=== PATIENT | female | born 1975 | race Caucasian/White ===

== ENCOUNTER 2024-09-24 14:32 | Outpatient (REF) | payer MEDICAID, SELFPAY ==
--- OUTSIDE RECORDS SUMMARY | 2024-09-24 18:00 | XMS_ITS | Encounter Summary ---
Author Organization [facility] Address [address] [place] [address] Care Team Providers Care Presentation Manager Name Role Phone Gume Arrieta MD Primary Care Provider [phone] Reason for Visit * Reason Comments New Patient Encounter Details Date Type Department Care Team (Late st Contact Info) Description 09/23/2024 2:00 PM EST Office Visit Urogynecology [address] [phone] Joanna Escobar MD [address] [place] [address] [address] [place] [address] Stress incontinence (Primary Dx); Normal urinalysis; Urge urinary incontinence Social History Tobacco Use Types Packs/Day Years Used Date Smoking Tobacco: Never Smokeless Tobacco: Never Tobacco Cessation:Counseling Given: Not Answered Alcohol Use Standard Drinks/Week Comments Yes 0 (1 standard drink = 0.6 oz pur e alcohol) Comments Unknown Sex and Gender Information Value Date Recorded Sex Assigned at Not on file Legal Sex Female 9:58 PM EST Gender Identity Not on file Sexual Orientation Not on file documented as of this encounter Last Filed Vital Signs Vital Sign Reading Time Taken Comments Blood Pressure 122/77 09/23/2024 2:02 PM EST Pulse 79 09/23/2024 2:02 PM EST Temperature - - Respiratory Rate 16 09/23/2024 2:02 PM EST Oxygen Saturation - - Inhaled Oxygen Concentration - - Weight 113 kg (249 lb) 09/23/2024 2:02 PM EST Height 165.1 cm (5' 5 ) 09/23/2024 2:02 PM EST Body Mass Index 41.44 09/23/2024 2:02 PM EST documented in this encounter Ordered Prescriptions Prescription Sig Dispense Quantity Refills Last Filled Start Date End Date mometasone (ELOCON) 0.1 % ointment Apply half a fingertip amount to the vulva twice weekly thereafter 45 g 1 09/23/2024 documented in this encounter Progress Notes * Joanna Escobar MD - 09/23/2024 2:00 PM EST UROGYNECOLOGY NEW PATIENT OFFICE VISIT VISIT LOCATION: [place] DATE: 09/23/2024 CHIEF COMPLAINT: Jazlyn Harper is a 49 y.o. female who presents for consultation requested by Anabel Jenkins CNM ind[place] opinion regarding urinary incontinence. HISTORY OF PRESENT ILLNESS: Ms. Harper presents today with a primary complaint of urinary leakage x few years. She has to wear a pad every day, changes them at least twice a day. She has noted worsening symptoms over the years.It has affected her quality of life. She affects her body image. She from her and is hesitant to become intimate with a new partner due to the UI. She leaks if she coughs, sneezes or laughs. If she travels, she restricts her fluid intake and preemptively voids before she leaves. She has to make sure her bladder empty, otherwise she will have to go frequently. She has to change her outer clothing if she leaks. Even if she empties her bladder and coughs, she will leak. She experiences strong sudden urgency when her bladder is too full and will leak with urgency. 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 Her youngest daughter has medical needs. She has no time to exercise or attend appointments due to her shifts. Fluid intake: Tries to drink water She loves coffee (one cup a day, at most two) Used to drink more when she was younger She denies soda, seltzer regularly She denies symptoms of voiding dysfunction. She reports sensation of vaginal bulge intermittently, has felt something after a bowel movement. She denies dysuria, gross hematuria, frequent UTIs. Sexual function Sexually active: Not currently active due to presenting symptoms. Reports history of coital incontinence. OBSTETRIC AND GYNECOLOGIC HISTORY: Deliveries: Vaginal: 1 : 2 Weight of largest baby: 6#12oz (), 8#6oz (C/S) Abnormal Pap smear: Yes Prior treatment included: LEEP remote in her 20s Last Pap: 06/01/2021 Prior Pelvic Radiation: no Menopause Perimenopause LMP 09/02/24 Oligomenorrhea has period about once a year Hormone Replacement Therapy: Denies Type: N/A No intermenstrual bleeding ADDITIONAL REVIEW OF SYSTEMS (ROS): Negative to review except as above in HPI. PAST/FAMILY/SOCIAL HISTORY (PFSH): Past Surgical History: No date: CERVICAL BIOPSY W/ LOOP ELECTRODE EXCISION Comment: PROCEDURE: CA CONIZATION CERVIX W/WO D&C RPR ELTRD EXC 01/22/2007: SECTION Comment: PROCEDURE: CA DELIVERY ONLY; COMMENT: x2 2022: CHOLECYSTECTOMY No date: MULTIPLE TOOTH EXTRACTIONS Comment: PROCEDURE: HISTORICAL DENTAL EXTRACTION No date: NASAL SEPTUM SURGERY Comment: Deviated septum No date: OTHER SURGICAL HISTORY Comment: PROCEDURE: HISTORY OTHER; COMMENT: nose/sinuses 01/22/2007: TUBAL LIGATION Comment: PROCEDURE: HISTORICAL TUBAL LIGATION Past Medical History: 10/09/2016: Cardiac murmur Comment: DX:Cardiac murmur 04/15/2017: Decreased hearing Comment: DX:Decreased hearing 12/24/2017: Depression with anxiety Comment: DX:Depression with anxiety 10/22/2017: Elevated platelet count Comment: DX:Elevated platelet count 02/05/2018: Hyperlipidemia Comment: DX:Hyperlipidemia 10/09/2016: Left lateral epicondylitis Comment: DX:Left lateral epicondylitis 09/07/2011: Psoriasis Comment: DX:Psoriasis 06/21/2015: Varicose veins Comment: DX:Varicose veins 12/24/2017: Vitamin D deficiency Comment: DX:Vitamin D deficiency Prior to Admission medications Medication Sig Start Date End Date Taking? Authorizing Provider albuterol 2.5 mg /3 mL (0.083 %) nebulizer solution Take 1 Vial by nebulization every 4 hours as needed for Wheezing for up to 180 days. 03/10/20 Historical Provider, albuterol HFA (PROAIR HFA ; PROVENTIL HFA ; VENTOLIN HFA) 90 mcg/actuation inhaler Inhale 2 Puffs into the lungs every 6 hours as needed for Cough or Wheezing. 03/10/20 Historical Provider, cholecalciferol (VITAMIN D-3) 50 mcg (2,000 unit) tablet 1 tablet (2,000 Units total). 01/07/15 Historical Provider, EPINEPHrine (EpiPen 2-Juan) 0.3 mg/0.3 mL injection Inject 1 Device as directed as needed (anaphylaxis). Use as directed 08/24/20 Historical Provider, escitalopram (LEXAPRO) 5 mg tablet TAKE 1 TABLET BY MOUTH EVERY DAY FOR 30 DAYS 01/11/22 Historical Provider, estradioL (ESTRACE) 0.01 % (0.1 mg/gram) vaginal cream 0.25g twice daily for 2 weeks then up to twice weekly as needed 03/27/24 04/21/25 Historical Provider, ferrous sulfate 325 mg (65 mg elemental iron) tablet Take 1 tablet (325 mg total) by mouth 1 (one) time each day. 07/16/19 Historical Provider, fexofenadine (DEBBIE) 180 mg tablet Take 1 tablet (180 mg total) by mouth 1 (one) time each day. 05/03/21 Historical Provider, fluticasone propion-salmeteroL (Advair HFA) 230-21 mcg/actuation inhaler Inhale 2 Puffs into the lungs 2 times daily for 360 days. 05/03/21 Historical Provider, ibuprofen (ADVIL,MOTRIN) 600 mg tablet Take 1 Tab by mouth every 8 hours as needed for Pain. 12/22/19Historical Provider, ipratropium-albuteroL (DUONEB) 0.5-2.5 mg/3 mL nebulizer solution Inhale 3 mL into the lungs once for 1 dose. 05/03/21 Historical Provider, MD Lutz,saliva/B.bif/S.therm (ACIDOPHILUS PROBIOTIC BLEND ORAL) Take 1 tablet by mouth 1 (one) time each day. 07/16/19 Historical Provider, miscellaneous medical supply [facility] [place] SPACER DEVICE-ADULT- Use with device with albuterol inhaler 09/03/19 Historical Provider, mometasone (ELOCON) 0.1 % ointment Apply half a fingertip amount to the vulva nightly x4 weeks thentwice weekly thereafter 03/27/24 Historical Provider, multivit with calcium,iron,min (MULTIPLE VITAMIN, WOMENS ORAL) Take 1 tablet by mouth 1 (one) time each day. 11/26/12 Historical ProviderMD sodium chloride (AYR) 0.65 % nasal drops 1-2 Sprays by Nasal route as needed for Congestion. 08/24/20Historical Provider, triamcinolone (NASACORT) 55 mcg nasal inhaler 55 mcg by Nasal route daily. 05/03/21 Historical Provider, Family History Problem Relation Name Age of Onset Colon polyps Father Prostate cancer Father Alzheimer's disease Aunt paternal Other (Other: CA Ovarian?) Aunt paternal 40.00 Coronary artery disease Mother Hypertension Mother Other (Other: arrhythmia) Mother Coronary artery disease Maternal Grandmother Other (Other: lung cancer) Maternal Grandmother Asthma Daughter Asthma Daughter Breast cancer Neg Hx Colon cancer Neg Hx Social History Socioeconomic History Marital status: Spouse name: None Number of children: None Years of education: None Highest education level: None Occupational History None Tobacco Use Smoking status: Never Smokeless tobacco: Never Substance and Sexual Activity Alcohol use: Yes Drug use: No Sexual activity: None Comment: Tubal ligation Other Topics Concern None Social History Narrative Lives with , 2 daughters, 1 son grown and out on his own 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 Joanna Escobar MD OBJECTIVE: Vitals: 09/23/24 1402 BP: 122/77 Pulse: 79 Resp: [address] Magistrate present: Marylou Wesley MA Constitutional: BMI - Body mass index is 41.44 kg/m??. General - Awake, alert, no acute distress. Head - Normocephalic, Atraumatic. Pulmonary - Normal respiratory effort, Speaking in full sentences comfortably. Abdominal - Protuberant, Soft, Nondistended, Nontender. No rebound or guarding., and Surgical scar(s) noted (Laparoscopic, C/S) Pelvic (a speculum was used for portions of the below exam): External Genitalia: Normal external genitalia, No erythema, No discharge. Urethral Meatus: Normal urethral meatus Urethra: Supine cough stress test negative. Vagina: Atrophic epithelium Cervix: Present and No abnormalities visualized POP-Q: Prolapse Noted: No Aa: -3 Ba: -3 C: -5 GH: 4 PB: 3 TVL: 9 Ap: -3 Bp: -3 D: -8 Levator Ani Contraction: Strong (5/5) Unmistakably strong contraction with psoterior elevation of fingers, held for at least 10 secconds, repeated 4-5 times Levator Ani Tone: Normal and Able to relax Levator Ani Tenderness: {none Bimanual: {Small, mobile, anteverted uterus, No adnexal masses Rectovaginal: Deferred Anal Sphincter: Deferred Voided volume = 50 ml. POST-VOID RESIDUAL performed (See procedure note below). Procedure Note: A catheterization was performed to check PVR and UA. I cleansed the urethral meatus with Betadine. Under sterile techniques a straight cath was inserted. Specimen was collected without difficulty. Patient tolerated procedure well. Joanna Escobar MD Post-Void Residual: 15 ml. I have reviewed the post-void residual volume, and have independently interpreted it as: negative for urinary retention URINE DIPSTICK performed due to urinary urgency. Leuks: neg Nitrites: neg Heme: neg I have reviewed the urine dipstick results, and have independently interpreted it as: negative for urinary tract infection and negative for hematuria Assessment & Diagnosis: Stress Urinary Incontinence (Chronic illness with exacerbation, progression, or side effects of treatment) -Discussed etiology of DANG. Management of this condition includes lifestyle and dietary modifications (timed voids, weight loss, avoidance of constipation and heavy lifting), pelvic floor muscle exercises/pelvic floor physical therapy, pessary, urethral bulking, mid-urethral mesh sling, non-mesh surgical options. -Previous therapies: lifestyle modifications -Current therapies: same as above -Given relative severity of her condition and desire for definitive management, she is a candidate for midurethral sling procedure. I explained the procedure, efficacy, duration of outcomes. -We discussed the need to schedule complex urodynamic testing if the patient decides to pursue surgical management of her urinary symptoms, to evaluate the mechanisms of her urinary incontinence and to assess her pre-operative voiding function. -After our discussion, Ms. Harper would like to proceed with urodynamic testing. We will meet following her testing to discuss management plan. Overactive Bladder Syndrome (Urinary Frequency, Urinary Urgency, Urge Urinary Incontinence, and/or Nocturia) (Chronic illness with exacerbation, progression, or side effects of treatment) -Discussed etiology and risk factors for UUI/OAB. -The care path for UUI/OAB includes lifestyle changes (I.e. fluid restriction, avoidance of bladderirritants, bladder training), PFPT, medications, and procedures (I.e. bladder Botox, sacral neuromodulation). -Previous therapies: lifestyle modifications -Current therapies: lifestyle modifications -Reviewed list of bladder irritants. -Discussed trial of OAB medication. There is no pharmacologic cure to OAB. Medications are prescribed to alleviate symptoms and improve quality of life. -If conservative treatment or medications are insufficient, we may proceed with advanced therapy options such as sacral nerve stimulation and intradetrusor Botox injections. We discussed that I do not see any evidence of pelvic organ prolapse on her exam. Her urinalysis today was negative for evidence of urinary tract infection or hematuria. Treatment plan: Schedule urodynamics Schedule follow up visit to discuss results and management plan Risk of morbidity, mortality and/or complications of treatment plan: Low I spent a total of 45 minutes on the date of the service, in seeing the patient and performing the following activities: Preparing to see the patient (e.g. reviewing tests) Obtaining and/or reviewingseparately obtained history Performing a medically appropriate examination and/or evaluation Counseling and educating the patient, family or caregiver Ordering medications, tests, or procedures Documenting clinical information in the electronic health record Independently interpreting results (not separately reported) and communicating results to the patient, family or caregiver My final recommendations will be communicated back to the requesting physician by way of shared Medical record or letter via US mail. Joanna Escobar MD Division of Urogynecology 09/23/2024 * Marylou Wesley MA - 09/23/2024 2:00 PM EST Lab Results Component Value Date POCGLUCURN Negative 09/23/2024 BILIRUBIN Negative 09/23/2024 KETONE Negative 09/23/2024 SPECGRAV 1.015 09/23/2024 BLOOD Negative 09/23/2024 PH 6.0 09/23/2024 PROTEIN Negative 09/23/2024 UROBILINOGEN 0.2 E.U./dL 09/23/2024 NITRITE Negative 09/23/2024 LEUKOCYTES Negative 09/23/2024 Cosigned by Joanna Escobar MD at 09/23/2024 2:46 PM EST documented in this encounter Plan of Treatment Upcoming Encounters Date Type Department Care Team (Late st Contact Info) Description 10/02/2024 1:30 PM EDT Office Visit Obstetrics and Gynecology - [facility] [address] [place] [address] Micaela Vega CN [address] [place] [address] 10/07/2024 2:00 PM EDT Clinical Support Urogynecology - [address] [phone] 10/14/2024 3:00 PM EDT Office Visit Urogynecology [address] [phone] Joanna Escobar MD [address] [place] [address] [address] [place] [address] documented as of this encounter Procedures Procedure Name Priority Date/Time Associated Diagnosis Comments POC URINE AUTO W/O MICRO Routine 09/23/2024 2:38 PM EST Normal urinalysis documented in this encounter Results * POC Urine Auto W/O Micro (09/23/2024 2:38 PM EST) Glucose UA POC Negative Negative, Trace mg/dL Bilirubin UA POC Negative Negative, Small Ketones UA POC Negative Negative, Trace Specific [place] UA POC 1.015 Blood UA POC Negative Negative, Large PH UA POC 6.0 Protein UA POC Negative Negative, >=300 mg/dL Urobilinogen UA POC 0.2 E.U./dL mg/dL Nitrite UA POC Negative Negative Leukocytes UA POC Negative Negative Urine Urine specimen obtained by clean catch procedure / Unknown 09/23/2024 2:38 PM EST us Joanna Escobar MD POINT OF CARE TEST ENTER/EDIT O RDERABLES Final Result documented in this encounter Visit Diagnoses Diagnosis Stress incontinence- Primary Female stress incontinence Normal urinalysis Urge urinary incontinence Urge incontinence documented in this encounter Discontinued Medications Medication Sig Discontinue Reason Start Date End Da te mometasone (ELOCON) 0.1 % ointment Apply half a fingertip amount to the vulva nightly x4 weeks then twice weekly thereafter Reorder 03/27/2024 09/23/2024 documented as of this encounter Care Teams Presentation Manager Relationship Specialty Start Date End Date Gume Arrieta MD [address] [facility] [place] PCP - General 04/06/24 documented as of this encounter
--- OUTSIDE RECORDS SUMMARY | 2024-09-24 18:00 | XMS_ITS ---
Author Organization [facility] Address [address] [place] [address] Care Team Providers Care Delivery Consultant Name Role Phone oral Lyles Primary Care Provider ISAURA Masterson [phone] REASON FOR VISIT none urgent Encounters Encounter Location Date Provider Diagnosis [facility] [address] [place] [address] 11/01/2023 ISAURA LYLES PLAN OF TREATMENT No Information Progress Notes * JOSEMANUEL WALSHDOB:1975 ( 48 yo F)Acc No.[id number]:11/01/2023 Patient:??JOSEMANUEL WALSH :1975?Age:48 Y?Sex:Fe male Address:[address] [place] [address] [place] [address] * true * Date:??
--- OUTSIDE RECORDS SUMMARY | 2024-09-24 18:00 | XMS_ITS ---
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 0.5. * Medical History:?? Objective: Assessment: Plan: * Treatment: * Images: Billing Information: * Visit Code:?? * Procedure Codes:?? * Sign off status: Pending * Provider:??Dimas Lyles MD Date:??10/31
--- OUTSIDE RECORDS SUMMARY | 2024-09-24 18:00 | XMS_ITS | Clinical Summary ---
Author Organization [address] Address [address] [place] [phone] Phone Care Team Providers Care Business Division Chair Name Role Phone Gume Arrieta MD Primary Care Provider [phone] Allergies Active Allergy Reactions Criticality Noted Date Comments Amoxicillin-Pot Clavulanate Other 03/10/2020 Diagnosed by allergy testing Iodine 05/31/2006 Swelling, fever Shellfish Derived Anaphylaxis,Itching, Rash High 12/18/2016 SEAFOOD: Allergic to fish and shellfish with the exception of white fish and scallop Medications albuterol 2.5 mg /3 mL (0.083 %) nebulizer solution Take 1 Vial by nebulization every 4 hours as needed for Wheezing for up to 180 days. 0 Active albuterol HFA (PROAIR HFA ; PROVENTIL HFA ; VENTOLIN HFA) 90 mcg/actuation inhaler Inhale 2 Puffs into the lungs every 6 hours as needed for Cough or Wheezing. 0 Active cholecalcifero l (VITAMIN D-3) 50 mcg (2,000 unit) tablet 1 tablet (2,000 Units total). 5 Active EPINEPHrine (EpiPen 2-Juan) 0.3 mg/0.3 mL injection Inject 1 Device as directed as needed (anaphylaxis). Use as directed 1 Active escitalopram (LEXAPRO) 5 mg tablet TAKE 1 TABLET BY MOUTH EVERY DAY FOR 30 DAYS 2 Active estradioL (ESTRACE) 0.01 % (0.1 mg/gram) vaginal cream 0.25g twice daily for 2 weeks then up to twice weekly as needed 4 025 Active ferrous sulfate 325 mg (65 mg elemental iron) tablet Take 1 tablet (325 mg total) by mouth 1 (one) time each day. 9 Active fexofenadine (DEBBIE) 180 mg tablet Take 1 tablet (180 mg total) by mouth 1 (one) time each day. 1 Active fluticasone propion-salmet Blaise (Advair HFA) 230-21 mcg/actuation inhaler Inhale 2 Puffs into the lungs 2 times daily for 360 days. 1 Active ibuprofen (ADVIL,MOTRIN) 600 mg tablet Take 1 Tab by mouth every 8 hours as needed for Pain. 0 Active ipratropium-al buteroL (DUONEB) 0.5-2.5 mg/3 mL nebulizer solution Inhale 3 mL into the lungs once for 1 dose. 1 Active multivit with calcium,iron,m in (MULTIPLE VITAMIN, WOMENS ORAL) Take 1 tablet by mouth 1 (one) time each day. 3 Active L.acidoph,sali va/B.bif/S.the rm (ACIDOPHILUS PROBIOTIC BLEND ORAL) Take 1 tablet by mouth 1 (one) time each day. 9 Active sodium chloride (AYR) 0.65 % nasal drops 1-2 Sprays by Nasal route as needed for Congestion. 1 Active triamcinolone (NASACORT) 55 mcg nasal inhaler 55 mcg by Nasal route daily. 1 Active miscellaneous medical supply [facility] SPACER DEVICE-ADULT- Use with device with albuterol inhaler 0 Active mometasone (ELOCON) 0.1 % ointment Apply half a fingertip amount to the vulva twice weekly thereafter 45 g 1 5 Active mometasone (ELOCON) 0.1 % ointment Apply half a fingertip amount to the vulva nightly x4 weeks then twice weekly thereafter 4 025 Discontin ued(Reord er) Active Problems Problem Noted Date Diagnosed Date Class 3 severe obesity due t o excess calories without serious comorbidity with body mass index (BMI) of 40.0 to 44.9 in adult 06/26/2024 Stress incontinence 06/01/2021 Lichen sclerosus 04/20/2020 Asthma 11/20/2019 Overview (06/26/2024): In childhood Recurrent wheezing in her 40s Morbid obesity 11/20/2019 Seasonal allergies 11/20/2019 Abnormal magnetic resonance imaging study 2017 Weakness of left leg 06/06/2018 Overview (06/26/2024): 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 Hyperlipidemia 02/05/2018 Depression with anxiety 12/24/2017 Vitamin D deficiency 12/24/2017 Elevated platelet count 10/22/2017 Decreased hearing 04/15/2017 Cardiac murmur 10/09/2016 Overview (06/26/2024): Nl echo with PVC 10/2019 Left lateral epicondylitis 10/09/2016 Known medical problems 06/21/2015 Overview (06/26/2024): Varicose veins Psoriasis 09/07/2011 Encounters Date Type Department Care Team Description 09/23/2024 2:00 PM EST Office Visit Urogynecology [address] [phone] Joanna Escobar MD Stress incontinence (Primary Dx); Normal urinalysis; Urge urinary incontinence from Last 3 Months Immunizations Name Administration Dates Next Due Influenza Quadravalent, MDCK , 0.5ml, preservative free (Flucelvax) 6mo and older 04/01/2020,07/16/2019 Moderna SARS-CoV-2 COVID-19, mRNA, LNP-S, preservative free 01/16/2021,12/19/2020 Tdap Tetanus diptheria acell ular pertussis (Boostrix; Adacel) 7yo and older 10/09/2016 Surgical History Surgery Date Site/Laterality Comments SECTION 01/22/2007 PROCEDURE: IA DELIVERY ONLY; COMMENT: x2 TUBAL LIGATION 01/22/2007 PROCEDURE: HISTORICAL TUBAL LIGATION CERVICAL BIOPSY W/ LOOP ELECTRODE EXCISION PROCEDURE: IA CONIZATION CERVIX W/WO D&C RPR ELTRD EXC MULTIPLE TOOTH EXTRACTIONS PROCEDURE: HISTORICAL DENTAL EXTRACTION OTHER SURGICAL HISTORY PROCEDURE: HISTORY OTHER; COMMENT: nose/sinuses CHOLECYSTECTOMY 07/22/2022 - 07/21/2023 NASAL SEPTUM SURGERY Deviated septum Medical History Medical History Date Comments Cardiac murmur 10/09/2016 DX:Cardiac murmu r Depression with anxiety 12/24/2017 DX:Depre ssion with anxiety Hyperlipidemia 02/05/2018 DX:Hyperlipidemi a Left lateral epicondylitis 10/09/2016 DX:Le ft lateral epicondylitis Vitamin D deficiency 12/24/2017 DX:Vitamin D deficiency Psoriasis 09/07/2011 DX:Psoriasis Varicose veins 06/21/2015 DX:Varicose vein s Decreased hearing 04/15/2017 DX:Decreased h earing Elevated platelet count 10/22/2017 DX:[place] platelet count Family History Medical History Relation Name Comments Alzheimer's disease Aunt paternal Other: CA Ovarian? Aunt paternal Asthma Daughter 1 Asthma Daughter 2 Colon polyps Father Prostate cancer Father Coronary artery disease Maternal Grandmother Other: lung cancer Maternal Grandmother Coronary artery disease Mother Hypertension Mother Other: arrhythmia Mother Breast cancer Neg Hx Colon cancer Neg Hx Relation Name Status Comments Aunt paternal Alive Daughter 1 Alive Daughter 2 Alive Father Alive Maternal Grandmother Mother Social History Tobacco Use Types Packs/Day Years [...] on file Sexual Orientation Not on file Obstetrics History Last Filed Vital Signs Vital Sign Reading [...] Mass Index 41.44 09/23/2024 2:02 PM EST Plan of Treatment Upcoming Encounters Date Type Department Care Team (Late st Contact Info) Description 10/02/2024 1:30 PM EDT [facility] [address] [place] [phone] Silvia Micaela, PAVEL [address] [place] [address] 10/07/2024 2:00 PM EDT Clinical Support Urogynecology - [address] [phone] 10/14/2024 3:00 PM EDT Office Visit Urogynecology - [address] [phone] Joanna Escobar MD [address] [place] [address] [address] [place] [address] Health Maintenance Due Date Last Done Comments Hepatitis A Vaccines (1 of 2 - Risk 2-dose series) 1992 Hepatitis B Vaccines (1 of 3 - 19+ 3-dose series) 1992 Pneumococcal Vaccine: 50+ Years (1 of 2 - PCV) 1992 Pneumococcal Vaccine: Pediatrics (0 to 5 Years) and At-Risk Patients (6 to 64 Years) (1 of 2 - PCV) 1992 Colorectal Cancer Screening: Colonoscopy 08/21/2019 Depression Screening 08/21/2019 Social Influencers of Health Screening 08/21/2019 Zoster Vaccines (1 of 2) 2023 COVID-19 Vaccine ( - season) 2024 08/25/2021, 01/16/2021, 12/19/2020 Influenza Vaccine (#1) 2024 04/01/2020, 2018 Breast Cancer Screening 11/17/2025 11/18/19 24, 10/16/2022, 10/11/2021, Additional history exists Cervical Cancer Screening: HPV 06/01/2026 06/01/2021 DTaP,Tdap,and Td Vaccines (2 - Td or Tdap) 10/09/2026 10/09/2016 Cholesterol Screening (Lipid Panel) 08/12/2029 08/12/2024, 07/16/2019 HIV Screening Completed 06/04/2022 Hepatitis C Screening Completed 06/04/2022 HIB Vaccines Aged Out No longer eligi ble based on patient's age to complete this topic HPV Vaccines Aged Out No longer eligi ble based on patient's age to complete this topic IPV Vaccines Aged Out No longer eligi ble based on patient's age to complete this topic MMR Vaccines Aged Out No longer eligi ble based on patient's age to complete this topic Meningococcal ACWY Vaccine Aged Out N o longer eligible based on patient's age to complete this topic Meningococcal B Vacine Aged Out No lo nger eligible based on patient's age to complete this topic RSV Immunization Patients Under 20 months Aged Out No longer eligible based on patient's age to complete this topic Varicella Vaccines Aged Out No longer eligible based on patient's age to complete this topic Procedures Procedure Name Priority Date/Time Associated Diagnosis Comments POC URINE AUTO W/O MICRO Routine 09/23/2024 2:38 PM EST Normal urinalysis CBC WITH AUTO DIFFERENTIAL Routine 08/12/2024 1:19 PM EST Dyslipidemia Routine general medical examination at a health care facility Fatigue THYROID STIMULATING HORMONE Routine 08/12/2024 1:19 PM EST Dyslipidemia Routine general medical examination at a health care facility Fatigue THYROXINE FREE Routine 08/12/2024 1:19 PM EST Dyslipidemia Routine general medical examination at a health care facility Fatigue CBC AND DIFFERENTIAL Routine 08/12/2024 1:19 PM EST Dyslipidemia Routine general medical examination at a health care facility Fatigue LIPID PANEL WITH REFLEX TO DIRECT LDL Routine 08/12/2024 1:19 PM EST Dyslipidemia Routine general medical examination at a health care facility Fatigue COMPREHENSIVE METABOLIC PANEL Routine 08/12/2024 1:19 PM EST Dyslipidemia Routine general medical examination at a health care facility Fatigue PAULINO SCREENING DIGITAL Routine 11/18/2023 10:01 AM EDT Encounter for screening mammogram for malignant neoplasm of breast HEPATITIS C SCREENING Routine 06/04/2022 HIV SCREENING Routine 06/04/2022 HPV Routine 06/01/2021 from Last 3 Months or Most Recently Relevant to Health Maintenance Results * POC Urine Auto W/O Micro (09/23/2024 2:38 PM EST) Glucose UA POC Negative Negative, Trace mg/dL Bilirubin UA POC Negative Negative, Small Ketones UA POC Negative Negative, Trace Specific [place] UA POC 1.015 Blood UA POC Negative Negative, Large PH UA POC 6.0 Protein UA POC Negative Negative, >=300 mg/dL Urobilinogen UA POC 0.2 E.U./dL mg/dL Nitrite UA POC Negative Negative Leukocytes UA POC Negative Negative Urine Urine specimen obtained by clean catch procedure / Unknown 09/23/2024 2:38 PM EST Joanna Escobar MD POINT OF CARE TEST ENTER/EDIT O RDERABLES Final Result * Lipid panel with reflex to direct LDL (08/12/2024 1:19 PM EST) Pathologist [facility] Cholesterol 160 0 - 200 mg/dL LAB CHEMISTRY METHOD 08/12/2024 5:32 PM [facility] Triglycerides 80 0 - 150 mg/dL LAB CHEMISTRY METHOD 08/12/2024 5:32 PM [facility] HDL 49 >=40 mg/dL LAB CHEMISTRY METHOD 08/12/2024 5:32 PM [facility] LDL Calculated 95 0 - 100 mg/dL LAB CHEMISTRY METHOD 08/12/2024 5:32 PM [facility] VLDL Cholesterol Joselito 16 mg/dL LAB CHEMISTRY METHOD 08/12/2024 5:32 PM [facility] Non HDL Chol. (LDL+VLDL) 111 <145 mg/dL LAB CHEMISTRY METHOD 08/12/2024 5:32 PM [facility] Chol/HDL Ratio 3.3 0.0 - 4.4 LAB CHEMISTRY METHOD 08/12/2024 5:32 PM [facility] Blood Venous blood specimen / Unknown Venipuncture / Unknown 08/12/2024 1:19 PM EST 08/12/2024 3:19 PM EST us Gume Arrieta MD LAB BLOOD ORDERABLES Final Resul t [facility] [address] [place] [address], [place] [phone] * (ABNORMAL) CBC auto differential (08/12/2024 1:19 PM EST) WBC 9.0 4.8 - 10.8 K/mcL LAB HEMETOLOGY METHOD 08/12/2024 3:37 PM [facility] RBC 4.60 3.80 - 4.80 M/mcL LAB HEMETOLOGY METHOD 08/12/2024 3:37 PM [facility] Hemoglobin 14.0 11.5 - 16.0 g/dL LAB HEMETOLOGY METHOD 08/12/2024 3:37 PM [facility] Hematocrit 42.0 35.0 - 47.0 % LAB HEMETOLOGY METHOD 08/12/2024 3:37 PM [facility] MCV 91.5 79.0 - 98.0 FL LAB HEMETOLOGY METHOD 08/12/2024 3:37 PM [facility] MCH 30.5 27.0 - 32.0 pcg LAB HEMETOLOGY METHOD 08/12/2024 3:37 PM [facility] MCHC 33.3 32.0 - 37.0 g/dL LAB HEMETOLOGY METHOD 08/12/2024 3:37 PM [facility] RDW 11.6 11.0 - 15.0 % LAB HEMETOLOGY METHOD 08/12/2024 3:37 PM [facility] Platelets 347 130 - 400 K/mcL LAB HEMETOLOGY METHOD 08/12/2024 3:37 PM [facility] MPV 10.4 7.0 - 11.0 FL LAB HEMETOLOGY METHOD 08/12/2024 3:37 PM [facility] NRBC 0.0 <1.0 % LAB HEMETOLOGY METHOD 08/12/2024 3:37 PM [facility] NRBC Absolute 0.00 <0.10 K/mcL LAB HEMETOLOGY METHOD 08/12/2024 3:37 PM [facility] Neutrophils Relative 58.7 % LAB HEMETOLOGY METHOD 08/12/2024 3:37 PM [facility] Lymphocytes Relative 27.4 % LAB HEMETOLOGY METHOD 08/12/2024 3:37 PM [facility] Monocytes Relative 10.9 % LAB HEMETOLOGY METHOD 08/12/2024 3:37 PM [facility] Eosinophils Relative 2.3 % LAB HEMETOLOGY METHOD 08/12/2024 3:37 PM [facility] Basophils Relative 0.3 % LAB HEMETOLOGY METHOD 08/12/2024 3:37 PM [facility] Immature Granulocytes Relative 0.4 % LAB HEMETOLOGY METHOD 08/12/2024 3:37 PM [facility] Neutrophils Absolute 5.30 1.50 - 7.00 K/mcL LAB HEMETOLOGY METHOD 08/12/2024 3:37 PM [facility] Lymphocytes Absolute 2.47 1.00 - 5.00 K/mcL LAB HEMETOLOGY METHOD 08/12/2024 3:37 PM [facility] Monocytes Absolute 0.98 0.20 - 1.00 K/mcL LAB HEMETOLOGY METHOD 08/12/2024 3:37 PM EST [facility] Eosinophils Absolute 0.21 0.00 - 0.50 K/[facility] LAB HEMETOLOGY METHOD 08/12/2024 3:37 PM EST [facility] Basophils Absolute 0.03 0.00 - 0.20 K/[facility] HEMETOLOGY METHOD 08/12/2024 3:37 PM EST [facility] Immature Granulocytes Absolute 0.04(H) 0.00 - 0.03 K/[facility] HEMETOLOGY METHOD 08/12/2024 3:37 PM EST [facility] Blood Venous blood specimen / Unknown Venipuncture / Unknown 08/12/2024 1:19 PM EST 08/12/2024 3:19 PM EST us Gume Arrieta MD LAB BLOOD ORDERABLES Final Resul t Performing Organization Address City/[facility]/ZIP Co de Phone Number [facility] [address] [place] [address], [place] [phone] * Thyroid stimulating hormone (08/12/2024 1:19 PM EST) TSH 1.22 0.40 - 4.00 mcIU/mL LAB CHEMISTRY METHOD 08/12/2024 5:40 PM EST [facility] Blood Venous blood specimen / Unknown Venipuncture / Unknown 08/12/2024 1:19 PM EST 08/12/2024 3:19 PM EST us Gume Arrieta MD LAB BLOOD ORDERABLES Final Resul t [facility] [address] [place] [address], [place] [phone] * Thyroxine free (08/12/2024 1:19 PM EST) Free T4 0.96 0.70 - 1.80 ng/dL LAB CHEMISTRY METHOD 08/12/2024 5:39 PM [facility] Blood Venous blood specimen / Unknown Venipuncture / Unknown 08/12/2024 1:19 PM EST 08/12/2024 3:19 PM EST us Gume Arrieta MD LAB BLOOD ORDERABLES Final Resul t [facility] [address] [place] [address], [place] [phone] * (ABNORMAL) Comprehensive metabolic panel (08/12/2024 1:19 PM EST) Sodium 138 133 - 145 mmol/L LAB CHEMISTRY METHOD 08/12/2024 5:32 PM [facility] Potassium 4.2 3.5 - 5.5 mmol/L LAB CHEMISTRY METHOD 08/12/2024 5:32 PM [facility] Chloride 105 96 - 110 mmol/L LAB CHEMISTRY METHOD 08/12/2024 5:32 PM [facility] CO2 29 21 - 32 mmol/L LAB CHEMISTRY METHOD 08/12/2024 5:32 PM [facility] Anion Gap 4 3 - 11 LAB CHEMISTRY METHOD 08/12/2024 5:32 PM [facility] Glucose 79 70 - 100 mg/dL LAB CHEMISTRY METHOD 08/12/2024 5:32 PM [facility] BUN 11 5 - 25 mg/dL LAB CHEMISTRY METHOD 08/12/2024 5:32 PM [facility] Creatinine 0.68 0.50 - 1.10 mg/dL LAB CHEMISTRY METHOD 08/12/2024 5:32 PM [facility] eGFR 106 >=60 mL/min/1. 73m2 LAB CHEMISTRY METHOD 08/12/2024 5:32 PM [facility] Comment:Calculation based on the??Chronic Kidney Disease Epidemiology Collaboration (CKD-EPI) equation refit??without adjustment for race. BUN/Creatinine Ratio 16.2 LAB CHEMISTRY METHOD 08/12/2024 5:32 PM [facility] Calcium 8.9 8.5 - 10.5 mg/dL LAB CHEMISTRY METHOD 08/12/2024 5:32 PM [facility] AST (SGOT) 48(H) 10 - 42 unit/L LAB CHEMISTRY METHOD 08/12/2024 5:32 PM [facility] ALT (SGPT) 76(H) 10 - 60 unit/L LAB CHEMISTRY METHOD 08/12/2024 5:32 PM [facility] Alkaline Phosphatase 71 42 - 121 unit/L LAB CHEMISTRY METHOD 08/12/2024 5:32 PM [facility] Total Protein 6.9 6.0 - 8.0 g/dL LAB CHEMISTRY METHOD 08/12/2024 5:32 PM [facility] Albumin 3.8 3.2 - 5.0 g/dL LAB CHEMISTRY METHOD 08/12/2024 5:32 PM [facility] Total Bilirubin 0.6 0.0 - 1.4 mg/dL LAB CHEMISTRY METHOD 08/12/2024 5:32 PM [facility] Blood Venous blood specimen / Unknown Venipuncture / Unknown 08/12/2024 1:19 PM EST 08/12/2024 3:19 PM EST us Gume Arrieta MD LAB BLOOD ORDERABLES Final Resul t [facility] [address] [place] [address], * PAULINO SCREENING DIGITAL (11/18/2023 10:01 AM EDT) Anatomical Region Laterality Modality Mammography 11/15/2023 9:18 AM EDT Narrative 11/18/2023 10:01 AM EDT [facility] Diagnostic Imaging Department [address] [place] [address] Patient: ??JOSEMANUEL WALSH ?/Age/Sex: 1975 - 48 - F Unit#: ??[id number] ? Location/Status: ??SPDIMAM/REG CLI ? Mnemonic/Ordering Site: ??DIGSC/SPMAIN Ordering Physician: ??DIMAS LYLES MD [facility] Screening Digital - 11/16/23 - 916 Report Status:Signed EXAM: [facility] Screening Digital EXAM DATE AND TIME: 11/16/2023 9:18 AM HISTORY: ??Screening. COMPARISON: ??10/15/22, 10/11/21, 04/07/20 TECHNIQUE: Bilateral digital breast tomosynthesis was performed in the CC and MLO projections. Computer aided detection with Enablon 3D 3.1 was employed. TISSUE DENSITY: a. The breasts are almost entirely fatty. FINDINGS: No suspicious masses, grouped microcalcifications, or areas of architectural distortion are seen. Skin calcifications are again seen. The vascularity is unremarkable. IMPRESSION: Stable mammographic appearance of the breasts. ??No evidence of malignancy is seen. A negative mammogram in the presence of a clinically suspicious palpable abnormality does not preclude the possibility of malignancy or alter the indications for biopsy. BI-RADS: ??Category 2: Benign RECOMMENDATION(S): 1: Routine screening mammogram BILATERAL in 1 year. Dictating Physician: ??KAYLAH LUCIO MD Electronically Signed by: ??KAYLAH LUCIO MD Dic Date/Time: ??11/18/23 1000 Sign date/Time: ??11/18/23 1001 Procedure Note Kaylah Lucio MD - 03/09/2024 [facility] Diagnostic Imaging Department [address] [place] [address] Patient: NICOJOSEMANUEL.O.B./Age/Sex: 1975 - 48 - F Unit#: [id number] [facility] CLI Mnemonic/Ordering Site: [facility] Ordering Physician: DIMAS LYLES MD [facility] Screening Digital - 11/16/23 - 0917 Report Status:Signed EXAM: [facility] Screening Digital EXAM DATE AND TIME: 11/16/2023 9:18 AM HISTORY: Screening. COMPARISON: 10/15/22, 10/11/21, 04/07/20 TECHNIQUE: Bilateral digital breast tomosynthesis was performed in the CCand MLO projections. Computer aided detection with Enablon 3D 3.1was employed. TISSUE DENSITY: a. The breasts are almost entirely fatty. FINDINGS: No suspicious masses, grouped microcalcifications, or areas ofarchitectural distortion are seen. Skin calcifications are again seen. The vascularityis unremarkable. IMPRESSION: Stable mammographic appearance of the breasts. No evidence of malignancyis seen. A negative mammogram in the presence of a clinically suspicious palpable abnormality does not preclude the possibility of malignancy or alter the indications for biopsy. BI-RADS: Category 2: Benign RECOMMENDATION(S): 1: Routine screening mammogram BILATERAL in 1 year. Dictating Physician: KAYLAH LUCIO MD Electronically Signed by: KAYLAH LUCIO MD Dic Date/Time: 11/18/23 1000 Sign date/Time: 11/18/23 1001 Result [facility] Dimas Lyles MD IMG BI PROCEDURES Final Result * HIV Screening (06/04/2022) HIV Screening abstracted Historical Provider HEALTH MAINTENANCE Final Result * Hepatitis C Screening (06/04/2022) Hepatitis C Screening abstracted [facility] Provider HEALTH MAINTENANCE Final Result * Cervical Cancer Screening: HPV (06/01/2021) Cervical Cancer Screening: HPV negative, abstracted [facility] Provider HEALTH MAINTENANCE Final Result from Last 3 Months or Most Recently Relevant to Health Maintenance Insurance MEDICAID - [place] Care Teams Business Division Chair Relationship Specialty Start Date End Date Gume Arrieta MD [facility] KATIE Billy PCP - General 04/06/24
--- OUTSIDE RECORDS SUMMARY | 2024-09-24 18:00 | XMS_ITS ---
Author Organization [facility] Address [address] [place] [address] Care Team Providers Care Machine Precision Engraver Name Role Phone oral Lyles Primary Care Provider Asya HERNÁNDEZANISAURA Unavailable [phone] TATIANNA CLARKE Unavailable [phone] REASON FOR VISIT pt has [facility]; we do not accept Encounters Encounter Location Date Provider Diagnosis [facility] [address] [place] [address] 11/19/2023 TATIANNA CLARKE PLAN OF TREATMENT No Information Progress Notes * JOSEMANUEL WALSHDOB:1975 ( 49 yo F)Acc No.[id number]:11/19/2023 Patient:??JOSEMANUEL WALSH Provider:??TATIANNA CLARKE PA-C :1975?Age:48 Y?Sex:Fe male Date:11/19/2023 Address:[address] [place], [place] [id number] Pcp:oral Lyles Subjective: * Chief Complaints: * ?1. Pt has [facility]; we do not accept. * Medical History:?? Objective: Assessment: Plan: * Treatment: * Images: Billing Information: * Visit Code:?? * Procedure Codes:?? * Sign off status: Pending * Provider:??TATIANNA CLARKE PA-C Date:??
== END 2024-09-24 14:33 | disposition home or self-care (01) ==
LOC: HO.HMGCX 14:32
PROVIDERS: PCP Internal Medicine; Visit Provider Internal Medicine
DX: K76.0 Fatty (change of) liver, not elsewhere classified (principal)
CPT/HCPCS: 36415; 81596

== ENCOUNTER 2024-10-26 09:23 | Outpatient (REF) | payer MEDICAID, SELFPAY ==
--- NOTE | ~2024-10-26 | US_ITS ---
EXAMINATION: US ABDOMEN HISTORY: FATTY LIVER TECHNIQUE: Real-time grayscale ultrasound imaging of the abdomen was performed and images were reviewed. COMPARISON: There are no prior studies for comparison. FINDINGS: Liver: The right lobe of the liver measures 15.7 cm in size. The left lobe of the liver measures 13.9 cm in size. The liver demonstrates increased echotexture, consistent with steatosis. Multiple cysts are noted in the left lobe the largest measuring 4.8 x 4.1 x 6.1 cm demonstrating internal septations. No intrahepatic biliary ductal dilatation is identified. There is normal hepatopedal flow in the portal vein. Gallbladder and biliary tree: The gallbladder is surgically absent. The common bile duct is normal in caliber measuring 5 mm. Kidneys: The right kidney measures 11.1 cm in length. The left kidney measures 11.7 cm in length. The kidneys are unremarkable, without evidence of masses, hydronephrosis, or calculi. Pancreas: The pancreatic head, neck, and body are unremarkable. The pancreatic tail is obscured by bowel gas. Spleen: The spleen is normal in size and contour, measuring 10.1 cm in length. An echogenic focus is noted in the spleen which likely represents a calcification. Abdominal aorta and inferior vena cava: The visualized portions of the abdominal aorta and inferior vena cava are normal in caliber. There is no free fluid in the abdomen. US/US abdomen complete IMPRESSION: Mild hepatomegaly and hepatic steatosis. Hepatic cysts as described. Follow-up is suggested. Electronically signed by: Ishaan Wallace MD 10/26/2024 11:45 AM EDT
--- OUTSIDE RECORDS SUMMARY | 2024-10-26 10:32 | XMS_ITS ---
Author Organization [facility] Address [address] [place] [address] Care Team Providers Care Optical Goods Worker Name Role Phone oral Lyles Primary Care Provider DIMAS Masterson Unavailable [phone] REASON FOR VISIT 0.5 Encounters Encounter Location Date Provider Diagnosis [facility] [address] [place] [address] 11/01/2023 DIMAS LYLES PLAN OF TREATMENT No Information Progress Notes * JOSEMANUEL WALSHDOB:1975 ( 49 yo F)Acc No.[id number]:11/01/2023 Patient:??JOSEMANUEL WALSH Provider:??Dimas Lyles MD :1975?Age:48 Y?Sex:Fe male Date:11/01/2023 Address:[address] [place], [place] [id number] Pcp:oral Lyles Subjective: * Chief Complaints: * ?1. 0.5. * Medical History:?? Objective: Assessment: Plan: * Treatment: * Images: Billing Information: * Visit Code:?? * Procedure Codes:?? * Sign off status: Pending * Provider:??Dimas Lyles MD Date:??10/31
--- OUTSIDE RECORDS SUMMARY | 2024-10-26 10:32 | XMS_ITS ---
Author Organization [facility] Address [address] [place] [address] Care Team Providers Care Microwave Technician Name Role Phone oral Lyles Primary Care Provider ISAURA Masterson [phone] REASON FOR VISIT none urgent Encounters Encounter Location Date Provider Diagnosis [facility] [address] [place] [address] 11/01/2023 ISAURA LYLES PLAN OF TREATMENT No Information Progress Notes * JOSEMANUEL WALSHDOB:1975 ( 48 yo F)Acc No.[id number]:11/01/2023 Patient:??JOSEMANUEL WALSH :1975?Age:48 Y?Sex:Fe male Address:[address] [place] [address] [place] [address] * true * Date:??
--- OUTSIDE RECORDS SUMMARY | 2024-10-26 10:32 | XMS_ITS | Clinical Summary ---
Author Organization [place] [address] [facility] Building Address [address] [place], [place] [address], [place] [address] Phone Care Team Providers Care Chiropractic Neurologist Name Role Phone Gume Arrieta MD Primary Care Provider [phone] Allergies Active Allergy Reactions Criticality Noted Date [...] needed for Cough or Wheezing. 0 Active cholecalciferol (VITAMIN D-3) 50 mcg (2,000 unit) tablet 1 tablet (2,000 Units total). 5 Active EPINEPHrine (EpiPen 2-Juan) 0.3 mg/0.3 mL injection Inject 1 Device as directed as needed (anaphylaxis). Use as directed 1 Active escitalopram (LEXAPRO) 5 mg tablet 2 Active estradioL (ESTRACE) 0.01 % (0.1 mg/gram) vaginal cream 0.25g twice daily for 2 weeks then up to twice weekly as needed 4 04/21/20 25 Active ferrous sulfate 325 mg (65 mg elemental iron) tablet Take 1 tablet (325 mg total) by mouth 1 (one) time each day. 9 Active fexofenadine (DEBBIE) 180 mg tablet Take 1 tablet (180 mg total) by mouth 1 (one) time each day. 1 Active fluticasone propion-salmete roL (Advair HFA) 230-21 mcg/actuation inhaler Inhale 2 Puffs into the lungs 2 times daily for 360 days. 1 Active ibuprofen (ADVIL,MOTRIN) 600 mg tablet Take 1 Tab by mouth every 8 hours as needed for Pain. 0 Active ipratropium-alb uteroL (DUONEB) 0.5-2.5 mg/3 mL nebulizer solution Inhale 3 mL into the lungs once for 1 dose. 1 Active multivit with calcium,iron,mi n (MULTIPLE VITAMIN, WOMENS ORAL) Take 1 tablet by mouth 1 (one) time each day. 3 Active L.acidoph,saliv a/B.bif/S.therm (ACIDOPHILUS PROBIOTIC BLEND ORAL) Take 1 tablet by mouth 1 (one) time each day. 9 Active sodium chloride (AYR) 0.65 % nasal drops 1-2 Sprays by Nasal route as needed for Congestion. 1 Active triamcinolone (NASACORT) 55 mcg nasal inhaler 55 mcg by Nasal route daily. 1 Active miscellaneous medical supply [facility] SPACER DEVICE-ADULT- Use with device with albuterol inhaler 0 Active mometasone (ELOCON) 0.1 % ointment Apply half a fingertip amount to the vulva twice weekly thereafter 45 g 1 5 Active Active Problems Problem Noted Date Diagnosed Date [...] Encounters Date Type Department Care Team Description 10/20/2024 Telephone Urogynecology - [address] [phone] Thelma Harding MA schedule surgery 10/14/2024 3:00 PM EDT Office Visit Urogynecology - [address] [phone] Joanna Escobar MD Stress incontinence (Primary Dx) 10/07/2024 2:00 PM EDT Clinical Support Urogynecology - [address] [phone] Rody Trimble RN Stress incontinence (Primary Dx) 09/23/2024 2:00 PM EST Office Visit Urogynecology - [address] [phone] Joanna Escobar MD Stress incontinence (Primary Dx); Normal urinalysis; Urge urinary incontinence from Last 3 Months Immunizations Name Administration Dates Next Due Influenza Quadravalent, MDCK , 0.5ml, preservative free (Flucelvax) 6mo and older 04/01/2020,07/16/2019 Moderna SARS-CoV-2 COVID-19, mRNA, LNP-S, preservative free 01/16/2021,12/19/2020 Tdap Tetanus diptheria acell ular pertussis (Boostrix; Adacel) 7yo and older 10/09/2016 Surgical History Surgery Date Site/Laterality Comments SECTION 01/22/2007 PROCEDURE: OR DELIVERY ONLY; COMMENT: x2 TUBAL LIGATION 01/22/2007 PROCEDURE: HISTORICAL TUBAL LIGATION CERVICAL BIOPSY W/ LOOP ELECTRODE EXCISION PROCEDURE: OR CONIZATION CERVIX W/WO D&C RPR ELTRD EXC [...] DX:Decreased h earing Elevated platelet count 10/22/2017 DX:[place] platelet count Family History Medical History [...] Sign Reading Time Taken Comments Blood Pressure 116/83 10/14/2024 2:57 PM EDT Pulse 90 10/14/2024 2:57 PM EDT Temperature - - Respiratory Rate 16 09/23/2024 2:02 PM EST Oxygen Saturation - - Inhaled Oxygen Concentration - - Weight 115 kg (253 lb) 10/14/2024 2:57 PM EDT Height 165.1 cm (5' 5 ) 10/14/2024 2:57 PM EDT Body Mass Index 42.1 10/14/2024 2:57 PM EDT Plan of Treatment Upcoming Encounters Date Type Department Care Team (Latest Contact Info) Description 12/16/2024 2:30 PM EDT Consult Urogynecology - [address] [phone] Joanna Escobar MD [address] [place] [phone] 12/28/2024 3:15 PM EDT Hospital Encounter [facility] [place] [address] [place] [phone] Joanna Escobar MD [address] [place] [phone] 12/28/2024 3:15 PM EDT - 12/28/2024 4:[address] [facility] [place] [address] [place] [phone] Joanna Escobar MD [address] [place] [phone] SLING SUBURETHRAL [[id number] (CPT??)] 01/19/2025 11:45 AM EDT Office Visit Urogynecology - [address] [phone] Joanna Escobar MD [address] [place] [phone] 02/08/2025 11:30 AM EDT Office Visit Urogynecology - [address] [phone] Joanna Escobar MD [address] [facility] [address] [place] [address] Scheduled Procedures Name Priority Associated Diagnoses Date/Ti me SLING SUBURETHRAL DANG (stress urinary incontinence, female) Female cystocele 12/28/2024 3:15 PM EDT CYSTOSCOPY DANG (stress urinary incontinence, female) Female cystocele 12/28/2024 3:15 PM EDT COLPORRHAPHY ANTERIOR POSTERIOR DANG (stress urinary incontinence, female) Female cystocele 12/28/2024 3:15 PM EDT Health Maintenance Due Date Last Done Comments [...] season) 2024 08/25/2021, 01/16/2021, 12/19/2020 Influenza Vaccine (Season Ended) 2025 04/01/2020, 07/16/2019 Breast Cancer Screening 11/17/2025 11/18/19 24, 10/16/2022, [...] Comments POC URINE AUTO W/O MICRO Routine 10/07/2024 2:59 PM EDT Stress incontinence POC URINE AUTO W/O MICRO Routine 09/23/2024 [...] screening mammogram for malignant neoplasm of breast HM HEPATITIS C SCREENING Routine 06/04/2022 HIV SCREENING Routine 06/04/2022 HPV Routine 06/01/2021 from Last 3 Months or Most Recently Relevant to Health Maintenance Results * POC Urine Auto W/O Micro (10/07/2024 2:59 PM EDT) Only the most recent of2 resultswithin the time period is included. Color UA POC Yellow Appearance UA POC Clear Glucose UA POC Negative Negative, Trace mg/dL Bilirubin UA POC Negative Negative, Small Ketones UA POC Negative Negative, Trace Specific [place] UA POC >=1.030 Blood UA POC Negative Negative, Large PH UA POC 6.5 Protein UA POC Negative Negative, >=300 mg/dL Urobilinogen UA POC 0.2 E.U./dL mg/dL Nitrite UA POC Negative Negative Leukocytes UA POC Negative Negative Urine Urinary bladder structure / Unknown 10/07/2024 2:59 PM EDT us Joanna Escobar MD POINT OF CARE TEST ENTER/EDIT O RDERABLES Final Result * Lipid panel with reflex to direct LDL (08/12/2024 1:19 PM EST) Cholesterol 160 0 - 200 mg/dL LAB CHEMISTRY METHOD 08/12/2024 5:32 PM [facility] Triglycerides 80 0 - 150 mg/dL LAB CHEMISTRY METHOD 08/12/2024 5:32 PM [facility] HDL 49 >=40 mg/dL LAB CHEMISTRY METHOD 08/12/2024 5:32 PM [facility] LDL Calculated 95 0 - 100 mg/dL LAB CHEMISTRY METHOD 08/12/2024 5:32 PM [facility] VLDL Cholesterol Joselito 16 mg/dL LAB CHEMISTRY METHOD 08/12/2024 5:32 PM [facility] Non HDL Chol. (LDL+VLDL) 111 <145 mg/dL LAB CHEMISTRY METHOD 08/12/2024 5:32 PM [facility] Chol/HDL Ratio 3.3 0.0 - 4.4 LAB CHEMISTRY METHOD 08/12/2024 5:32 PM [facility] Blood Venous blood specimen / Unknown Venipuncture / Unknown 08/12/2024 1:19 PM EST 08/12/2024 3:19 PM EST us Gume Arrieta MD LAB BLOOD ORDERABLES Final Resul t [facility] [address] [place] [address], [place] [phone] * (ABNORMAL) CBC auto differential (08/12/2024 1:19 PM EST) WBC 9.0 4.8 - 10.8 K/mcL LAB HEMETOLOGY METHOD 08/12/2024 3:37 PM [facility] RBC 4.60 3.80 - 4.80 M/mcL LAB HEMETOLOGY METHOD 08/12/2024 3:37 PM [facility] Hemoglobin 14.0 11.5 - 16.0 g/dL LAB HEMETOLOGY METHOD 08/12/2024 3:37 PM [facility] Hematocrit 42.0 35.0 - 47.0 % LAB HEMETOLOGY METHOD 08/12/2024 3:37 PM [facility] MCV 91.5 79.0 - 98.0 FL LAB HEMETOLOGY METHOD 08/12/2024 3:37 PM [facility] MCH 30.5 27.0 - 32.0 pcg LAB HEMETOLOGY METHOD 08/12/2024 3:37 PM [facility] MCHC 33.3 32.0 - 37.0 g/dL LAB HEMETOLOGY METHOD 08/12/2024 3:37 PM [facility] RDW 11.6 11.0 - 15.0 % LAB HEMETOLOGY METHOD 08/12/2024 3:37 PM [facility] Platelets 347 130 - 400 K/mcL LAB HEMETOLOGY METHOD 08/12/2024 3:37 PM [facility] MPV 10.4 7.0 - 11.0 FL LAB HEMETOLOGY METHOD 08/12/2024 3:37 PM [facility] NRBC 0.0 <1.0 % LAB HEMETOLOGY METHOD 08/12/2024 3:37 PM [facility] NRBC Absolute 0.00 <0.10 K/mcL LAB HEMETOLOGY METHOD 08/12/2024 3:37 PM [facility] Neutrophils Relative 58.7 % LAB HEMETOLOGY METHOD 08/12/2024 3:37 PM [facility] Lymphocytes Relative 27.4 % LAB HEMETOLOGY METHOD 08/12/2024 3:37 PM [facility] Monocytes Relative 10.9 % LAB HEMETOLOGY METHOD 08/12/2024 3:37 PM [facility] Eosinophils Relative 2.3 % LAB HEMETOLOGY METHOD 08/12/2024 3:37 PM [facility] Basophils Relative 0.3 % LAB HEMETOLOGY METHOD 08/12/2024 3:37 PM [facility] Immature Granulocytes Relative 0.4 % LAB HEMETOLOGY METHOD 08/12/2024 3:37 PM [facility] Neutrophils Absolute 5.30 1.50 - 7.00 K/mcL LAB HEMETOLOGY METHOD 08/12/2024 3:37 PM [facility] Lymphocytes Absolute 2.47 1.00 - 5.00 K/mcL LAB HEMETOLOGY METHOD 08/12/2024 3:37 PM [facility] Monocytes Absolute 0.98 0.20 - 1.00 K/mcL LAB HEMETOLOGY METHOD 08/12/2024 3:37 PM EST [facility] Eosinophils Absolute 0.21 0.00 - 0.50 K/[facility] LAB HEMETOLOGY METHOD 08/12/2024 3:37 PM EST [facility] Basophils Absolute 0.03 0.00 - 0.20 K/[facility] LAB HEMETOLOGY METHOD 08/12/2024 3:37 PM EST [facility] Immature Granulocytes Absolute 0.04(H) 0.00 - 0.03 K/[facility] LAB HEMETOLOGY METHOD 08/12/2024 3:37 PM EST [facility] Blood Venous blood specimen / Unknown Venipuncture / Unknown 08/12/2024 1:19 PM EST 08/12/2024 3:19 PM EST us Gume Arrieta MD LAB BLOOD ORDERABLES Final Resul t Performing Organization Address City/[facility]/ZIP Co de Phone Number [facility] [address] [place] [address], [place] [phone] * Thyroid stimulating hormone (08/12/2024 1:19 PM EST) TSH 1.22 0.40 - 4.00 mcIU/mL LAB CHEMISTRY METHOD 08/12/2024 5:40 PM EST [facility] Blood Venous blood specimen / Unknown Venipuncture / Unknown 08/12/2024 1:19 PM EST 08/12/2024 3:19 PM EST us Gume Arrieta MD LAB BLOOD ORDERABLES Final Resul t [facility] [address] [place] [address], [place] [phone] * Thyroxine free (08/12/2024 1:19 PM EST) Free T4 0.96 0.70 - 1.80 ng/dL LAB CHEMISTRY METHOD 08/12/2024 5:39 PM EST [facility] Blood Venous blood specimen / Unknown Venipuncture / Unknown 08/12/2024 1:19 PM EST 08/12/2024 3:19 PM EST us Gume Arrieta MD LAB BLOOD ORDERABLES Final Resul t [facility] [address] [place] [address], * (ABNORMAL) Comprehensive metabolic panel (08/12/2024 1:19 PM EST) Sodium 138 133 - 145 mmol/L LAB CHEMISTRY METHOD 08/12/2024 5:32 PM [facility] Potassium 4.2 3.5 - 5.5 mmol/L LAB CHEMISTRY METHOD 08/12/2024 5:32 PM [facility] Chloride 105 96 - 110 mmol/L LAB CHEMISTRY METHOD 08/12/2024 5:32 PM [facility] CO2 29 21 - 32 mmol/L LAB CHEMISTRY METHOD 08/12/2024 5:32 PM [facility] Anion Gap 4 3 - 11 LAB CHEMISTRY METHOD 08/12/2024 5:32 PM [facility] Glucose 79 70 - 100 mg/dL LAB CHEMISTRY METHOD 08/12/2024 5:32 PM [facility] BUN 11 5 - 25 mg/dL LAB CHEMISTRY METHOD 08/12/2024 5:32 PM [facility] Creatinine 0.68 0.50 - 1.10 mg/dL LAB CHEMISTRY METHOD 08/12/2024 5:32 PM [facility] eGFR 106 >=60 mL/min/1. 73m2 LAB CHEMISTRY METHOD 08/12/2024 5:32 PM [facility] Comment:Calculation based on the??Chronic Kidney Disease Epidemiology Collaboration (CKD-EPI) equation refit??without adjustment for race. BUN/Creatinine Ratio 16.2 LAB CHEMISTRY METHOD 08/12/2024 5:32 PM [facility] Calcium 8.9 8.5 - 10.5 mg/dL LAB CHEMISTRY METHOD 08/12/2024 5:32 PM [facility] AST (SGOT) 48(H) 10 - 42 unit/L LAB CHEMISTRY METHOD 08/12/2024 5:32 PM [facility] ALT (SGPT) 76(H) 10 - 60 unit/L LAB CHEMISTRY METHOD 08/12/2024 5:32 PM [facility] Alkaline Phosphatase 71 42 - 121 unit/L LAB CHEMISTRY METHOD 08/12/2024 5:32 PM [facility] Total Protein 6.9 6.0 - 8.0 g/dL LAB CHEMISTRY METHOD 08/12/2024 5:32 PM [facility] Albumin 3.8 3.2 - 5.0 g/dL LAB CHEMISTRY METHOD 08/12/2024 5:32 PM [facility] Total Bilirubin 0.6 0.0 - 1.4 mg/dL LAB CHEMISTRY METHOD 08/12/2024 5:32 PM [facility] Blood Venous blood specimen / Unknown Venipuncture / Unknown 08/12/2024 1:19 PM EST 08/12/2024 3:19 PM EST Gume Arrieta MD LAB BLOOD ORDERABLES Final Resul t [facility] [address] [place] [address], * PAULINO SCREENING DIGITAL (11/18/2023 10:01 AM EDT) Anatomical Region Laterality Modality Mammography 11/15/2023 9:18 AM EDT Narrative 11/18/2023 10:[address] [facility] Diagnostic Imaging Department [address] [place] [address] Patient: ??JOSEMANUEL WALSH ?/Age/Sex: 1975 - 48 - F Unit#: ??[id number] ? Location/Status: ??SPDIMAM/REG CLI ? Mnemonic/Ordering Site: ??DIGSC/SPMAIN Ordering Physician: ??DIMAS LYLES MD [facility] Screening Digital - 11/16/23 - 916 Report Status:Signed EXAM: [facility] Screening Digital EXAM DATE AND TIME: 11/16/2023 9:18 AM HISTORY: ??Screening. COMPARISON: ??10/15/22, 10/11/21, 04/07/20 TECHNIQUE: Bilateral digital breast tomosynthesis was performed in the CC and MLO projections. Computer aided detection with ITao 3D 3.1 was employed. TISSUE DENSITY: a. [...] Procedure Note Kaylah Lucio MD - 03/09/2024 [facility] Diagnostic Imaging Department [address] [place] [id number] Patient: NICOJOSEMANUEL /Age/Sex: 1975 - 48 - F Unit#: [id number] [facility] Mnemonic/Ordering Site: [facility] Ordering Physician: DIMAS LYLES MD [facility] Screening Digital - 11/16/23 - 0917 Report Status:Signed EXAM: [facility] Screening Digital EXAM DATE AND TIME: 11/16/2023 9:18 AM HISTORY: Screening. COMPARISON: 10/15/22, 10/11/21, 04/07/20 TECHNIQUE: Bilateral digital breast tomosynthesis was performed in the CCand MLO projections. Computer aided detection with ITao 3D 3.1was employed. TISSUE DENSITY: a. The [...] 11/18/23 1000 Sign date/Time: 11/18/23 1001 Result [facility] Dimas Lyles MD IMG BI PROCEDURES Final Result * HIV Screening (06/04/2022) HIV Screening abstracted Historical Provider HEALTH MAINTENANCE Final Result * Hepatitis C Screening (06/04/2022) Hepatitis C Screening abstracted [facility] Provider HEALTH MAINTENANCE Final Result * Cervical Cancer Screening: HPV (06/01/2021) Pathologist [facility] Cervical Cancer Screening: HPV negative, abstracted [facility] Provider HEALTH MAINTENANCE Final Result from Last 3 Months or Most Recently Relevant to Health Maintenance Insurance MEDICAID - [place] Care Teams Chiropractic Neurologist Relationship Specialty Start Date End Date Gume Arrieta MD [address] [place], [place] PCP - General 04/06/24
== END 2024-10-26 09:24 | disposition home or self-care (01) ==
LOC: HO.US 09:23
PROVIDERS: PCP Internal Medicine; Visit Provider Internal Medicine
DX: K76.0 Fatty (change of) liver, not elsewhere classified (principal)
CPT/HCPCS: 76700

== ENCOUNTER → 2024-10-26 09:53 | Outpatient (BNV) | payer MEDICAID, SELFPAY | PROVIDERS: PCP Internal Medicine; Visit Provider Radiology Diagnostic Radiology | DX: K76.0 Fatty (change of) liver, not elsewhere classified (principal) | CPT/HCPCS: 76700 ==